=== PATIENT | female | born 1940 | race Caucasian/White ===

== ENCOUNTER 2022-04-08 19:43 | Emergency (ER) | payer MEDICARE, OTHER ==
--- NOTE | 2022-04-08 21:56 | ERPHSYRPT ---
- History of Present Illness Time Seen by Provider: 04/08/22 21:51 Source: patient Exam Limitations: no limitations Patient Subjective Stated Complaint: pt states she woke up feeling achy at 1200 today, then slowly has been feeling better today, took a covid test at home, states it was positive so she came to er to be seen Triage Nursing Assessment: pt alerta nd orinetd, no SOB or CP, no fever, states she feels better at this time then she did this afternoon Physician History: Patient is an 81-year-old white female who presents after obtaining a positive home COVID test at approximately noon today. She was fine this morning at noon she started chilling and found her temperature to be 102. She would like to use the Paxil bed if possible. She complains of no shortness of breath. Timing/Duration: today Associated Symptoms: fever, chills, cough Allergies/Adverse Reactions: No Known Drug Allergies Allergy (Unverified 04/08/22 21:42) Hx Tetanus, Diphtheria Vaccination/Date Given: No Hx Influenza Vaccination/Date Given: Yes Hx Pneumococcal Vaccination/Date Given: Yes Travel Risk - International Travel Have you traveled outside of the country in past 3 weeks: No - Coronavirus Screening Are you exhibiting any of the following symptoms?: No Close contact with a COVID-19 positive Pt in past 14-21 Days: No - Vaccine Status Have you recieved a Covid-19 vaccination: Yes Geospatial Technologist: Moderna - Vaccination Dates Date of 2cond Vaccination (if applicable): unknown - Review of Systems Constitutional: Fever, Chills Eyes: No Symptoms Ears, Nose, & Throat: No Symptoms Respiratory: No Cough, No Dyspnea Cardiac: No Chest Pain, No Edema, No Syncope Abdominal/Gastrointestinal: No Abdominal Pain, No Nausea, No Vomiting, No Diarrhea Genitourinary Symptoms: No Dysuria Musculoskeletal: No Back Pain, No Neck Pain Skin: No Rash Neurological: No Dizziness, No Focal Weakness, No Sensory Changes Psychological: No Symptoms Endocrine: No Symptoms All Other Systems: Reviewed and Negative - Past Medical History Neurological History: No Pertinent History Cardiac History: High Cholesterol, Hypertension Respiratory History: No Pertinent History Endocrine Medical History: No Pertinent History Musculoskeletal History: Arthritis - Past Surgical History Past Surgical History: Yes Other Surgical History: hyserectomy, choly - Social History Smoking Status: Never smoker Drug Use: none - Nursing Vital Signs Nursing Vital Signs: Initial Vital Signs Temperature 98.2 F 04/08/22 21:34 Pulse Rate 84 04/08/22 21:34 Respiratory Rate 18 04/08/22 21:34 Blood Pressure 208/82 04/08/22 21:34 O2 Sat by Pulse Oximetry 98 04/08/22 21:34 Pain Scale Pain Intensity 0 - Physical Exam General Appearance: no apparent distress, alert Eye Exam: PERRL/EOMI, eyes nml inspection Ears, Nose, Throat Exam: normal ENT inspection, TMs normal, pharynx normal, moist mucous membranes Neck Exam: normal inspection, non-tender, supple, full range of motion Respiratory Exam: normal breath sounds, lungs clear, No respiratory distress Cardiovascular Exam: regular rate/rhythm, normal heart sounds Gastrointestinal/Abdomen Exam: soft, No tenderness Back Exam: normal inspection, No CVA tenderness, No vertebral tenderness Extremity Exam: normal inspection, normal range of motion Neurologic Exam: alert, oriented x 3, cooperative, normal mood/affect, sensation nml, No motor deficits Skin Exam: normal color, warm, dry, No rash Lymphatic Exam: No adenopathy SpO2: 98 - Course Nursing assessment & vital signs reviewed: Yes - Progress Progress: improved Air Movement: good Blood Culture(s) Obtained: No Antibiotics given: No - Departure Departure Disposition: Home Clinical Impression: COVID Condition: Stable Critical Care Time: No Referrals: IRNIEO MC NP [Primary Care Provider] - Follow up/PCP as directed Prescriptions: Nirmatrelvir/Ritonavir [Paxlovid 2X150 mg-100 mg (Eua)] 1 each PO BID 5 Days #10 tablet
[2022-04-08 22:03] VITALS: BP 189/74; PULSE 78; O2SAT 95
[2022-04-08 22:46] LABS: INFLUENZA A NEGATIVE (NEGATIVE); INFLUENZA B NEGATIVE (NEGATIVE); RESPIRATORY SYNCTIAL VIRUS NEGATIVE (Negative)
[2022-04-08 22:48] LABS: SARS-CoV-2 Xpert Express POSITIVE (NEGATIVE)
== END 2022-04-08 22:12 | disposition home or self-care (01) ==
LOC: ED 19:43
DX: U07.1 COVID-19 (principal); R50.9 Fever, unspecified; R05.9 Cough, unspecified; E78.5 Hyperlipidemia, unspecified; I10 Essential (primary) hypertension
CPT/HCPCS: 0241U; 99282

== ENCOUNTER 2024-02-28 13:02 | Emergency (ER) | payer MEDICARE, OTHER ==
[2024-02-28 13:31] VITALS: TEMP 97.5
--- NOTE | 2024-02-28 13:54 | ERPHSYRPT ---
- History of Present Illness Time Seen by Provider: 02/28/24 13:51 Source: patient Exam Limitations: no limitations Patient Subjective Stated Complaint: C/O Swelling to RLE. Patient indicates that her leg has been swollen for about a month but just started turning red a few days ago. Triage Nursing Assessment: Patient ambulated back to ER. She is alert and oriented. RLE is red, swollen, hot to touch. Tender to touch. PICKERING WNL. No SOB. Physician History: C/O Swelling to RLE. Patient indicates that her leg has been swollen for about a month but just started turning red a few days ago. Patient is 83-year-old female with significant past medical history of hypertension chronic venous stasis as well as lymphedema in both lower extremity started having swelling on her right lower extremity below the knee 1 month ago but in the last few days the skin below the knee is turning red and has developed some blisters on the right leg. So patient got concerned about infection and came to the emergency room. Timing/Duration: week(s) (4-6 weeks) Severity: moderate Associated Symptoms: denies symptoms Allergies/Adverse Reactions: No Known Drug Allergies Allergy (Verified 02/28/24 13:19) Home Medications: Atenolol 50 mg [Tenormin 50 mg] 100 mg PO DAILY 02/28/24 [History] Atorvastatin Calcium 40 mg PO HS 02/28/24 [History] Clorazepate Dipotassium 7.5 mg PO DAILY PRN 02/28/24 [History] Famotidine 20 mg [Pepcid 20 MG] 20 mg PO HS 02/28/24 [History] Furosemide 20 mg [Lasix 20 mg] 20 mg PO DAILY 02/28/24 [History] Omeprazole 20 mg PO DAILY 02/28/24 [History] Potassium Chloride [Klor-Con 10] 10 mg PO DAILY 02/28/24 [History] Hx Tetanus, Diphtheria Vaccination/Date Given: Yes Hx Influenza Vaccination/Date Given: Yes Hx Pneumococcal Vaccination/Date Given: Yes Immunizations Up to Date: Yes Travel Risk - International Travel Have you traveled outside of the country in past 3 weeks: No - Emerging Infectious Disease Are you exhibiting symptoms associated with any current EIDs: No - Review of Systems Constitutional: No Fever, No Chills Eyes: No Symptoms Ears, Nose, & Throat: No Symptoms Respiratory: No Cough, No Dyspnea Cardiac: No Chest Pain, No Edema, No Syncope Abdominal/Gastrointestinal: No Abdominal Pain, No Nausea, No Vomiting, No Diarrhea Genitourinary Symptoms: No Dysuria Musculoskeletal: No Back Pain, No Neck Pain Skin: Cellulitis, Induration, No Rash Neurological: No Dizziness, No Focal Weakness, No Sensory Changes Psychological: No Symptoms Endocrine: No Symptoms All Other Systems: Reviewed and Negative - Past Medical History Pertinent Past Medical History: Yes Neurological History: No Pertinent History Cardiac History: High Cholesterol, Hypertension Respiratory History: No Pertinent History Endocrine Medical History: No Pertinent History Musculoskeletal History: Arthritis GI Medical History: GERD Psycho-Social History: Anxiety Other Medical History: Hx of vertigo - Past Surgical History Past Surgical History: Yes Gastrointestinal: Cholecystectomy Female Surgical History: Hysterectomy Other Surgical History: foot surgery - Social History Smoking Status: Never smoker Exposure to second hand smoke: No Drug Use: none - Social Determinants of Health Will the patient participate in the screening: Yes Do you worry about a steady place to live?: No Do you have any problems with any of the following?: No known problems In the past 12 months,have you had to go without utilities?: No Transportation Issues: No Has anyone in your support network made you feel unsafe?: No Have you or anyone in your house had to go without enough: No - Nursing Vital Signs Nursing Vital Signs: Initial Vital Signs Pulse Rate 59 L 02/28/24 13:17 Respiratory Rate 18 02/28/24 13:17 Blood Pressure 198/58 02/28/24 13:17 Pain Scale Pain Intensity 5 - Physical Exam General Appearance: no apparent distress, alert Eye Exam: PERRL/EOMI, eyes nml inspection Ears, Nose, Throat Exam: normal ENT inspection, TMs normal, pharynx normal, moist mucous membranes Neck Exam: normal inspection, non-tender, supple, full range of motion Respiratory Exam: normal breath sounds, lungs clear, No respiratory distress Cardiovascular Exam: regular rate/rhythm, normal heart sounds, normal peripheral pulses Gastrointestinal/Abdomen Exam: soft, normal bowel sounds, No tenderness, No mass Back Exam: normal inspection, normal range of motion, No CVA tenderness, No vertebral tenderness Extremity Exam: normal inspection, normal range of motion, pelvis stable Neurologic Exam: alert, oriented x 3, cooperative, normal mood/affect, nml cerebellar function, nml station & gait, sensation nml, No motor deficits Skin Exam: normal color, warm, dry, other (right leg erythema), No rash Lymphatic Exam: No adenopathy SpO2: 97 - Course Nursing assessment & vital signs reviewed: Yes Ordered Tests: Active Orders 24 hr Category Date Time Status BLOOD CULTURE Stat Lab 02/28/24 14:12 Received CBC W DIFF Stat Lab 02/28/24 14:05 Completed CMP Stat Lab 02/28/24 14:05 Completed Lab/Rad Data: Laboratory Result Diagrams 02/28/24 14:05 02/28/24 14:05 Laboratory Results 02/28/24 02/28/24 Range/Units 14:05 14:05 WBC 9.6 (3.98-10.04) x10^3/uL RBC 4.71 (3.93-5.22) x10^6/uL Hgb 14.5 (11.2-15.7) g/dL Hct 42.5 (34.1-44.9) % MCV 90.2 (79.4-94.8) fL MCH 30.8 (25.6-32.2) pg MCHC 34.1 (32.2-35.5) g/dL RDW 12.6 (11.7-14.4) % Plt Count 221 (182-369) x10^3/uL MPV 8.5 L (9.4-12.3) fL Gran % 61.3 (34.0-71.1) % Immature Gran % (Auto) 0.4 (0.001-0.429) % Nucleat RBC Rel Count 0.0 (0.00-0.2) % Eos # (Auto) 0.13 (0.04-0.36) x10^3/uL Immature Gran # (Auto) 0.04 H (0.001-0.031) x10^3u/L Absolute Lymphs (auto) 2.55 (1.18-3.74) x10^3/uL Absolute Monos (auto) 0.95 H (0.24-0.86) x10^3/uL Absolute Nucleated RBC 0.00 (0.00-0.012) x10^3u/L Lymphocytes % 26.6 (19.3-51.7) % Monocytes % 9.9 (4.7-12.5) % Eosinophils % 1.4 (0.7-5.8) % Basophils % 0.4 (0.1-1.2) % Absolute Granulocytes 5.89 (1.56-6.13) x10^3/uL Basophils # 0.04 (0.01-0.08) x10^3/uL Sodium 140 (135-145) mmol/L Potassium 3.7 (3.5-5.1) mmol/L Chloride 107 (98-107) mmol/L Carbon Dioxide 24 (22-30) mmol/L Anion Gap 12.4 (5-15) MEQ/L BUN 14 (7-17) mg/dL Creatinine 0.94 (0.52-1.04) mg/dL Estimated GFR 60.2 ML/MIN Glucose 104 (74-106) mg/dL Calcium 9.7 (8.4-10.2) mg/dL Total Bilirubin 0.80 (0.2-1.3) mg/dL AST 24 (14-36) U/L ALT 18 (0-35) U/L Alkaline Phosphatase 101 (38-126) U/L Serum Total Protein 7.5 (6.3-8.2) g/dL Albumin 4.4 (3.5-5.0) g/dL - Progress Progress: unchanged Counseled pt/family regarding: lab results, diagnosis, need for follow-up Medical Desision Making - Risk of complications Low Risk: Low risk of morbidity from additional dx testing or treatment - Departure Departure Disposition: Home Clinical Impression: Venous stasis dermatitis of right lower extremity Condition: Stable Critical Care Time: No Referrals: IRINEO MC NP [NON-STAFF PHY W/O PRIVILEGES] - Follow up/PCP as directed Instructions: Phlebitis (DC), Lymphedema, Lymphedema (DC), Lowering Your Chance for Lymphedema, Massage Additional Instructions: Discharge/Care Plan MICHEL GHOSH was seen on 02/28/24 in the Emergency Room. The patient was counseled regarding Diagnosis,Lab results, Imaging studies, need for follow up and when to return to the Emergency Room. Prescriptions given: Discharge Note I have spoken with the patient and/or caregivers. I have explained the patient's condition, diagnosis and treatment plan based on the information available to me at this time. I have answered the patient's and/or caregiver's questions and addressed any concerns. The patient and/or caregivers have as good understanding of the patient's diagnosis, condition and treatment plan as can be expected at this point. The vital signs have been stable. The patient's condition is stable and appropriate for discharge from the emergency department. The patient will pursue further outpatient evaluation with the primary care physician or other designated or consulting physician as outlined in the discharge instructions. The patient and/or caregivers are agreeable to this plan of care and follow-up instructions have been explained in detail. The patient and/or caregivers have received these instruction. The patient/and or caregivers are aware that any significant change in condition or worsening of symptoms should prompt an immediate return to this or the closest emergency department or call 911. MICHEL GHOSH was seen on 02/28/24 n the Emergency Room. At that time you were treated for an emergent condition, during your visit Laboratory, Radiology and/or other procedures may have been ordered. It is very important that you follow-up with your Primary Care Physician ANDERSON SERRANO within the next 24-48 hours to review your Emergency Room visit and the final results of testing that was ordered. Some test results such as Urine Cultures, Blood Cultures, and oth er cultures if ordered will not be finalized for 24-48 hours. If you do not have a Primary Care Provider please call the medical records department at [phone] ext [phone] to obtain a copy of your results or you may sign into our patient portal to obtain these results by visiting us @ [email or web address] and completing the following steps: 1. Click on the Patient Portal link 2. Click the Patient Self Enrollment Link to complete the enrollment form and entering your 3. Once the enrollment form is completed you will receive an email with a temporary ID and password at the email address you provided. 4. Next choose a user name and password. Your user name must be at least 4 characters long and your password must be at least 4 characters long. 5. Choose a security question from the list and provide your answer to the question. If you already have signed into the Health Portal you may access your Health Care Information 30/03 by the following steps: 1. Login to our website @ [email or web address] 2. Enter your original user name and password. FAQS [facility] Health Portal is an online tool that contains your Lab Results, Radiology Reports, Visit History, Discharge Instructions and Health Summary Lab and Radiology Results will not be available for 72 hours on the portal. The Portal is a secure site, passwords are encryted and URLs are re-written so they cannot be copied and pasted. You and authorized family members are the only ones who can access your Portal. Also there is a timeout feature that protects your information if you leave the Portal page open. If you have technical difficulty please use the Contact Us link on the page this will allow you to submit any questions you have regarding the Portal or you may contact the Medical Record Department at [phone]. Prescriptions: Cefdinir 300 mg PO BID #15 cap Triamcinolone 0.1% Cream [Kenalog 0.1% Cream 15 gm] 1 gm TP QID #60 cm
[2024-02-28 14:17] LABS: Absolute Neutrophil Ct (ANC) 5.89 x10^3/uL (1.56-6.13); BASOPHIL % 0.4 % (0.1-1.2); Basophil (Absolute #) 0.04 x10^3/uL (0.01-0.08); Eosinophil % 1.4 % (0.7-5.8); Eosinophil (Absolute #) 0.13 x10^3/uL (0.04-0.36); Hematocrit 42.5 % (34.1-44.9); Hemoglobin 14.5 g/dL (11.2-15.7); IMMATURE GRAN # 0.04 x10^3u/L (0.001-0.031); IMMATURE GRAN % 0.4 % (0.001-0.429); Lymphocyte (Absolute #) 2.55 x10^3/uL (1.18-3.74); Lymphocytes % 26.6 % (19.3-51.7); Mean Cell Volume 90.2 fL (79.4-94.8); Mean Corpuscular Hemoglobin 30.8 pg (25.6-32.2); Mean Corpuscular Hgb Concent. 34.1 g/dL (32.2-35.5); Mean Platelet Volume 8.5 fL (9.4-12.3); Monocyte (Absolute #) 0.95 x10^3/uL (0.24-0.86); Monocytes % 9.9 % (4.7-12.5); Neutrophil % 61.3 % (34.0-71.1); Platelet Count 221 x10^3/uL (182-369); Red Blood Count 4.71 x10^6/uL (3.93-5.22); Red Cell Distribution Width 12.6 % (11.7-14.4); White Blood Count 9.6 x10^3/uL (3.98-10.04)
[2024-02-28 14:30] LABS: ALBUMIN 4.4 g/dL (3.5-5.0); ANION GAP 12.4 MEQ/L (5-15); BILIRUBIN,TOTAL 0.8 mg/dL (0.2-1.3); Calcium 9.7 mg/dL (8.4-10.2); Creatinine 1 0.94 mg/dL (0.52-1.04); EST GLOMERULAR FILTRATION RATE 60.2 ML/MIN; Potassium 3.7 mmol/L (3.5-5.1); Total Protein 7.5 g/dL (6.3-8.2)
[2024-02-28] MEDS ORDERED: Rocephin 1000 MG INJ ONE (14:52)
[2024-02-28] MEDS ORDERED: XYLOCAINE 1% HCL 20 ML MDV ONE (14:53)
[2024-02-28] MEDS: Rocephin 1000 MG INJ IM ONE (14:54)
[2024-02-28 14:56] VITALS: RESP 16
[2024-02-28 15:02] VITALS: BP 168/86; PULSE 64; O2SAT 96
== END 2024-02-28 15:09 | disposition home or self-care (01) ==
LOC: ED 13:02
DX: I87.2 Venous insufficiency (chronic) (peripheral) (principal); E78.5 Hyperlipidemia, unspecified; I10 Essential (primary) hypertension; Z79.899 Other long term (current) drug therapy
CPT/HCPCS: 36415; 80053; 85025; 87040; 96372; 99283; J0696